=== PATIENT | female | born 1965 | race Caucasian/White ===

== ENCOUNTER 2020-03-09 17:26 | Outpatient (REF) | payer BC, SELFPAY ==
--- NOTE | 2020-03-09 15:15 | PAPFT_PTH ---
PATIENT: Marley Rosales LOC: [facility] / [facility] U#:[id number] AGE/SX: 54/F ROOM: RE03/09/[address]: Ina Francois : 1965 BED: DIS: 03/09/2020 SPEC #: [id number] RECD: 03/10/20 12:43 STATUS: ELVIN REYolette #: [id number] TAMMY: 03/09/20 15:[address]: Ina Francois DEPT: [facility] Cytology RECD BY: Jeffery Beyer Tissues: 1 - CX/ENDOCX FOR PAP SMEARS Procedures: PAP THIN PREP/[facility] Screening Comments: [id number] (UNSATISFACTORY FOR EVALUATION)
== END 2020-03-09 17:46 ==
LOC: NCHCN 17:26
PROVIDERS: PCP Family Medicine; Visit Provider Nurse Practitioner Community Health
DX: Z12.4 Encounter for screening for malignant neoplasm of cervix (principal); R87.615 Unsatisfactory cytologic smear of cervix
CPT/HCPCS: 88142

== ENCOUNTER 2022-07-29 10:41 | Outpatient (REF) | payer BC, SELFPAY ==
[2022-07-29 14:42] LABS: HCT 37.8 % (36.0-46.0); HGB 12.4 g/dL (11.2-15.7); MCH 31.3 pg (27.0-33.0); MCHC 32.8 % (32.0-36.0); MCV 96 fL (80-95); MPV 8.5 fL (8.0-11.0); Platelet Count 474 10^3/uL (130-400); RBC 3.96 10^6/uL (3.93-5.22); RDW 12.5 % (11.7-14.6); RDW-SD 44.5 fL; WBC 8.42 10^3/uL (4.4-10.8)
[2022-07-29 15:06] LABS: ALT 14 U/L (14-59); AST 21 U/L (15-37); Albumin 3.2 g/dL (3.4-5.0); Alkaline Phosphatase 74 U/L (46-116); Anion Gap 8.1 mmol/L (3-11); BUN 11 mg/dL (7-18); Bilirubin, Total 0.2 mg/dL (0.2-1.0); CO2 28.9 mmol/L (21.0-32.0); CREATININE 0.7 mg/dL (0.55-1.02); Calcium 9.6 mg/dL (8.5-10.1); Chloride 103 mmol/L (98-107); Estimated GFR 99.57 (mL/min/1.73m2); Glucose 94 mg/dL (74-106); Sodium 140 mmol/L (136-145); Total Protein 7.9 g/dL (6.4-8.2)
== END 2022-07-29 10:42 | disposition home or self-care (01) ==
LOC: NCHCN 10:41
PROVIDERS: PCP Family Medicine; Visit Provider Family Medicine
DX: R11.2 Nausea with vomiting, unspecified (principal); R10.9 Unspecified abdominal pain
CPT/HCPCS: 80053; 85027

== ENCOUNTER 2022-10-11 12:37 | Outpatient (REF) | payer BC, SELFPAY ==
[2022-10-10 17:02] LABS: Calculated LDL 140 mg/dL (<100); Cholesterol 231 mg/dL (<200); HDL Cholesterol 70 mg/dL (40-60); Triglyceride 108 mg/dL (<150)
== END 2022-10-11 12:38 | disposition home or self-care (01) ==
LOC: NCHCN 12:37
PROVIDERS: PCP Family Medicine; Visit Provider Family Medicine
DX: Z13.220 Encounter for screening for lipoid disorders (principal)
CPT/HCPCS: 80061

== ENCOUNTER 2023-09-15 11:34 | Outpatient (REF) | payer BC, SELFPAY ==
--- OUTSIDE RECORDS SUMMARY | 2023-09-15 11:39 | XMS_ITS | CCD ---
Author Name Unknown Address [address] [place] [address] [phone] Organization Unknown Address [address] [place] [address] [phone] Care Team Providers Care Customer Engineering Specialist Name Role Phone AL DEVLIN, CHAKA Rajput Attending Physician [phone] Vital Signs Vital Sign Value Unit Date/Time Recent/Initial ? BP Systolic 122 mmHg 03/15/2021 14:46 Initial VS BP Diastolic 68 mmHg 03/15/2021 14:46 Initia l VS Respiratory Rate 14 bpm 03/15/2021 14:46 In itial VS Heart Rate 59 bpm 03/15/2021 14:46 Initial VS Allergies Allergy Code Allergy Type Reaction Status CEPHALEXIN 2231 Drug allergy Active Procedures Procedure Code Procedure Type Date Colonoscopy Flx Dx w/Collj Spec When Pfrmd 21375 CPT 03/15/2021 History of Immunizations Unknown or Not Available. Problems Unknown or Not Available. Results Unknown or Not Available. Active Medications Unknown or Not Available. Medications Administered During Visit Unknown or Not Available. Encounters Encounter Diagnosis Diagnosis Code Start Date Encounter for screening for malignant neoplasm o f colon [id number] 03/15/2021 Social History Smoking Status Code Start Date End Date Former smoker [id number] Patient Decision Aids Unknown or Not Available. Discharge Instructions You were admitted to [facility] on 03/15/2021 11:00 with a principal diagnosis of Encounter for screening for malignant neoplasm of colon You had the following procedures done:Colonoscopy Flx Dx w/Collj Spec When Pfrmd You were discharged from [facility] on 03/15/2021 15:17 Should you have any questions prior to discharge, please contact a member of your healthcare team. If you have left the hospital and have any questions, please contact your primary care physician. Chief Complaint and Reason For Visit Unknown or Not Available. Function Status Unknown or Not Available. Plan of Care Unknown or Not Available. Referral/Transition of Care Unknown or Not Available.
--- OUTSIDE RECORDS SUMMARY | 2023-09-15 11:39 | XMS_ITS | CCD ---
Author Name Unknown Address [address] [place] [address] [phone] Organization Unknown Address [address] [place] [address] [phone] Care Team Providers Care Commutator Undercutter Name Role Phone ONIEL AVANI R Attending Physician [phone] Vital Signs Unknown or Not Available. Allergies Allergy Code Allergy Type Reaction Status CEPHALEXIN 2231 Drug allergy Active Procedures Unknown or Not Available. History of Immunizations Unknown or Not Available. Problems Unknown or Not Available. Results HEP C ANTIBODY WITH REFLEX P CR - Collect Date/Time: 07/22/2022 12:34 Test Name Code Test Result Test Units Test Ref Rang e Hep C Ab w Rfx PCR Negative N/A Negati ve Active Medications Unknown or Not Available. Medications Administered During Visit Unknown or Not Available. Encounters Encounter Diagnosis Diagnosis Code Start Date Viral screening [id number] 07/22/2022 Social History Smoking Status Code Start Date End Date Former smoker [id number] Patient Decision Aids Unknown or Not Available. Discharge Instructions You were admitted to [facility] on 07/22/2022 12:14 with a principal diagnosis of Encounter for screening for other viral diseases You had the following tests done:HEP C ANTIBODY WITH REFLEX PCR You were discharged from [facility] on 07/22/2022 11:23 Should you have any questions prior to [...]
== END 2023-09-15 11:35 | disposition home or self-care (01) ==
LOC: NCHCN 11:34
PROVIDERS: PCP Family Medicine; Visit Provider Family Medicine
DX: N89.8 Other specified noninflammatory disorders of vagina (principal); L29.3 Anogenital pruritus, unspecified
CPT/HCPCS: 87480; 87510; 87660

== ENCOUNTER 2023-10-13 15:42 | Outpatient (REF) | payer BC, SELFPAY ==
[2023-10-13 15:38] LABS: HCT 38.7 % (36.0-46.0); HGB 12.8 g/dL (11.2-15.7); MCH 30.8 pg (27.0-33.0); MCHC 33.1 % (32.0-36.0); MCV 93 fL (80-95); MPV 8.9 fL (8.0-11.0); Platelet Count 330 10^3/uL (130-400); RBC 4.15 10^6/uL (3.93-5.22); RDW 13.6 % (11.7-14.6); RDW-SD 46.9 fL; WBC 6.27 10^3/uL (4.4-10.8)
[2023-10-13 16:01] LABS: ALT 25 U/L (14-59); AST 20 U/L (15-37); Albumin 3.9 g/dL (3.4-5.0); Alkaline Phosphatase 70 U/L (46-116); Anion Gap 8.4 mmol/L (3-11); BUN 16 mg/dL (7-18); Bilirubin, Total 0.4 mg/dL (0.2-1.0); CO2 29.6 mmol/L (21.0-32.0); CREATININE 0.7 mg/dL (0.55-1.02); Calcium 9.7 mg/dL (8.5-10.1); Chloride 104 mmol/L (98-107); Estimated GFR 98.95 (mL/min/1.73m2); Folate 10.2 ng/mL (8.6-20.0); Glucose 96 mg/dL (74-106); Magnesium 1.8 mg/dL (1.8-2.4); Potassium 4.6 mmol/L (3.5-5.1); Sodium 142 mmol/L (136-145); TSH 1.52 uIU/mL (0.36-3.74); Total Protein 7.4 g/dL (6.4-8.2)
[2023-10-13 16:21] LABS: Vitamin D 25 Total 33.1 ng/mL (30-100)
== END 2023-10-13 15:43 | disposition home or self-care (01) ==
LOC: NCHCN 15:42
PROVIDERS: PCP Family Medicine; Visit Provider Family Medicine
DX: E53.8 Deficiency of other specified B group vitamins (principal); R53.83 Other fatigue; E61.2 Magnesium deficiency; E55.9 Vitamin D deficiency, unspecified; R21 Rash and other nonspecific skin eruption
CPT/HCPCS: 80053; 82306; 85027; 82746; 83735; 84443

== ENCOUNTER 2024-11-13 10:47 | Outpatient (REF) | payer BC, SELFPAY ==
[2024-11-13 15:14] LABS: ALT 24 U/L (14-59); AST 22 U/L (15-37); Albumin 3.8 g/dL (3.4-5.0); Alkaline Phosphatase 73 U/L (46-116); Anion Gap 3.6 mmol/L (3-11); BUN 17 mg/dL (7-18); Bilirubin, Total 0.3 mg/dL (0.2-1.0); CO2 30.4 mmol/L (21.0-32.0); CREATININE 0.7 mg/dL (0.55-1.02); Calcium 9.6 mg/dL (8.5-10.1); Calculated LDL 146 mg/dL (<100); Chloride 106 mmol/L (98-107); Cholesterol 256 mg/dL (<200); Estimated GFR 98.34 (mL/min/1.73m2); Glucose 92 mg/dL (74-106); HDL Cholesterol 94 mg/dL (>or=50); Potassium 4.4 mmol/L (3.5-5.1); Sodium 140 mmol/L (136-145); Total Protein 7.9 g/dL (6.4-8.2); Triglyceride 81 mg/dL (<150)
== END 2024-11-13 10:48 | disposition home or self-care (01) ==
LOC: NCHCN 10:47
PROVIDERS: PCP Family Medicine; Visit Provider Family Medicine
DX: E78.5 Hyperlipidemia, unspecified (principal)
CPT/HCPCS: 80053; 80061

== ENCOUNTER 2025-05-13 21:05 | Outpatient (REF) | payer BC, SELFPAY ==
[2025-05-13 21:43] LABS: HCT 36.3 % (36.0-46.0); HGB 12.3 g/dL (11.2-15.7); MCH 31.6 pg (27.0-33.0); MCHC 33.9 % (32.0-36.0); MCV 93 fL (80-95); MPV 9.1 fL (8.0-11.0); Platelet Count 322 10^3/uL (130-400); RBC 3.89 10^6/uL (3.93-5.22); RDW 13.6 % (11.7-14.6); RDW-SD 46.4 fL; WBC 6.71 10^3/uL (4.4-10.8)
[2025-05-13 21:44] LABS: ESR 15 mm/hr (0-30)
[2025-05-14 17:25] LABS: CRP, High Sensitivity 0.98 mg/L (See Note)
== END 2025-05-13 21:06 | disposition home or self-care (01) ==
LOC: NCHCN 21:05
PROVIDERS: PCP Family Medicine; Visit Provider Nurse Practitioner Family
DX: R51.9 Headache, unspecified (principal)
CPT/HCPCS: 85027; 85652; 86141